=== PATIENT | female | born 1970 | race Hispanic/Latino ===

== ENCOUNTER 2021-03-05 15:09 | Emergency (ER) | payer SELFPAY ==
[~2021-03-05] VITALS: Ht 170.2 cm; Wt 108.9 kg
[2021-03-05] MEDS ORDERED: HYDROCODONE/ACETAMINOPHEN 10/325 MG TAB PO ONE (17:30)
[2021-03-05 18:34] VITALS: BP 135/76
[2021-03-05] MEDS ORDERED: ACET-2247 PO (18:39)
== END 2021-03-05 19:08 | disposition home or self-care (01) ==
LOC: EDH 15:09
DX: S83.91XA Sprain of unspecified site of right knee, initial encounter (principal); Z20.822 Contact with and (suspected) exposure to COVID-19; E11.9 Type 2 diabetes mellitus without complications; E66.9 Obesity, unspecified; E78.00 Pure hypercholesterolemia, unspecified; I10 Essential (primary) hypertension; M17.0 Bilateral primary osteoarthritis of knee; Z68.37 Body mass index [BMI] 37.0-37.9, adult; W18.39XA Other fall on same level, initial encounter; Y93.89 Activity, other specified; Y92.89 Other specified places as the place of occurrence of the external cause; Y99.8 Other external cause status
CPT/HCPCS: 73562; 87635; 87804 ×2; 99284; C9803

== ENCOUNTER 2021-05-19 10:33 | Emergency (ER) | payer OTHER, SELFPAY ==
[~2021-05-19] VITALS: Ht 170.2 cm; Wt 107.5 kg
[~2021-05-19 10:33] MED LIST: ACET-2247 PO
[2021-05-19 11:21] LABS: CREATININE 0.6 mg/dL (0.5-1.5); POTASSIUM 3.5 mmol/L (3.5-5.1)
[2021-05-19] MEDS ORDERED: 0.9%NACL 1000ML 1,000 ML IV SCH (11:30)
[2021-05-19 11:31] LABS: ALBUMIN 3.9 g/dL (3.5-5.0)
[2021-05-19 11:51] LABS: BASOPHILS % (AUTO) 0.7 % (0.0-5.0); HEMATOCRIT 39.9 % (36-48); LYMPHOCYTES % (AUTO) 28.4 % (21.0-51.0); MEAN CORPUSCULAR HEMOGLOBIN 28.4 pg (27.0-33.0); MEAN CORPUSCULAR HGB CONC 33.1 g/dL (32.0-36.0); MEAN CORPUSCULAR VOLUME 85.8 fL (79-99); MONOCYTES % (AUTO) 6.9 % (3.0-13.0); NEUTROPHILS % (AUTO) 60.5 % (40.0-77.0); PLATELET COUNT (AUTO) 257 K/uL (130-400); RED BLOOD CELL COUNT(AUTO) 4.65 MIL/uL (4.00-5.50); RED CELL DISTRIBUTION WIDTH 13.5 % (11.0-15.5); WHITE BLOOD COUNT (AUTO) 4.4 K/uL (4.8-10.8)
[2021-05-19 12:01] LABS: INR 0.99 (0.85-1.15); PROTHROMBIN TIME 10.8 SEC (9.6-11.6)
[2021-05-19] MEDS ORDERED: ACETAMINOPHEN 500 MG TABLET ONE (12:06)
[2021-05-19] MEDS ORDERED: ACETAMINOPHEN 500 MG TABLET PO SCH (12:30)
[2021-05-19 16:00] VITALS: BP 140/86
== END 2021-05-19 16:33 | disposition home or self-care (01) ==
LOC: EDH 10:33
DX: G43.109 Migraine with aura, not intractable, without status migrainosus (principal); E78.00 Pure hypercholesterolemia, unspecified; I10 Essential (primary) hypertension; J45.909 Unspecified asthma, uncomplicated; M19.90 Unspecified osteoarthritis, unspecified site
CPT/HCPCS: 36415; 70450; 70496; 70498; 70551; 80053; 84484; 85025; 85610; 85730; 93005; 96360; 96361; 99285; J7030

== ENCOUNTER 2021-07-26 11:12 | Emergency (ER) | payer OTHER ==
[~2021-07-26] VITALS: Ht 165.1 cm; Wt 99.8 kg
[2021-07-26 11:17] VITALS: BP 165/99
[2021-07-26 11:52] LABS: BASOPHILS % (AUTO) 0.2 % (0.0-5.0); EOSINOPHILS % (AUTO) 2.2 % (0.0-8.0); LYMPHOCYTES % (AUTO) 16.6 % (21.0-51.0); MEAN CORPUSCULAR HEMOGLOBIN 28.2 pg (27.0-33.0); MEAN CORPUSCULAR HGB CONC 32.9 g/dL (32.0-36.0); MEAN CORPUSCULAR VOLUME 85.8 fL (79-99); MONOCYTES % (AUTO) 6.7 % (3.0-13.0); NEUTROPHILS % (AUTO) 74.1 % (40.0-77.0); PLATELET COUNT (AUTO) 239 K/uL (130-400); RED BLOOD CELL COUNT(AUTO) 4.43 MIL/uL (4.00-5.50); RED CELL DISTRIBUTION WIDTH 14.1 % (11.0-15.5); WHITE BLOOD COUNT (AUTO) 5.1 K/uL (4.8-10.8)
[2021-07-26] MEDS ORDERED: ACETAMINOPHEN 500 MG TABLET PO ONE (12:00)
[2021-07-26 12:07] LABS: CREATININE 0.7 mg/dL (0.5-1.5); POTASSIUM 3.4 mmol/L (3.5-5.1)
[2021-07-26 12:11] LABS: ALBUMIN 3.3 g/dL (3.5-5.0); BILIRUBIN,TOTAL 0.8 mg/dL (0.2-1.0)
[2021-07-26 12:11] LABS: APPEARANCE,URINE Cloudy (CLEAR); BILIRUBIN,URINE Negative (NEGATIVE); COLOR,URINE Yellow (YELLOW); GLUCOSE, URINE (UA) Negative (NEGATIVE); KETONES,URINE Negative (NEGATIVE); LEUKOCYTE ESTERASE ,URINE Large (NEGATIVE); NITRATE,URINE Negative (NEGATIVE); OCCULT BLOOD,URINE Negative (NEGATIVE); PH,URINE 5.5 (5.0-8.0); PROTEIN,URINE Negative (NEGATIVE); UROBILINOGEN,URINE 0.2 mg/dL (0.2-1.0)
[2021-07-26 12:23] LABS: AMPHET/METH SCREEN,URINE NEGATIVE (NEGATIVE); BARBITURATE SCREEN, URINE NEGATIVE (NEGATIVE); BENZODIAZEPINES SCREEN,URINE NEGATIVE (NEGATIVE); CANNABINOID SCREEN,URINE NEGATIVE (NEGATIVE); COCAINE SCREEN,URINE NEGATIVE (NEGATIVE); OPIATE SCREEN,URINE NEGATIVE (NEGATIVE); PHENCYCLIDINE SCREEN,URINE NEGATIVE (NEGATIVE)
[2021-07-26 12:34] LABS: BACTERIA,URINE Few /HPF (None Seen); SQUAMOUS EPITHELIAL CELL,UR Few /HPF (0-2)
[2021-07-26] MEDS ORDERED: ZOSYN 3.375GM +NS 50ML IV STA (12:38)
[2021-07-26] MEDS ORDERED: CEPH500B PO (13:14)
[2021-07-26] MEDS ORDERED: CEFTRIAXONE 1G VIAL ONE (13:19)
[2021-07-26] MEDS ORDERED: CEFTRIAXONE 1G VIAL IVP ONE (13:30)
== END 2021-07-26 13:33 | disposition home or self-care (01) ==
LOC: EDH 11:12
DX: N39.0 Urinary tract infection, site not specified (principal); G43.109 Migraine with aura, not intractable, without status migrainosus; M19.012 Primary osteoarthritis, left shoulder; M19.90 Unspecified osteoarthritis, unspecified site; I10 Essential (primary) hypertension
CPT/HCPCS: 36415; 73030; 70450; 80053; 80305; 81001; 85025; 87088; 93005; 96374; 99285; J0696